=== PATIENT | male | born 1955 | race African-American/Black ===

== ENCOUNTER 2016-07-19 17:41 | Emergency (ER) | payer MEDICARE, MEDICAID ==
[~2016-07-19] VITALS: Ht 177.8 cm; Wt 90.0 kg
[~2016-07-19 17:41] MED LIST: BACL-141 PO; KEPP500 PO; LAM1 PO; LEVE750T4 PO; LISI40TA4 PO; METO50TA5 PO; SIMV20TA6 PO; TERA5CAP4 PO; TOPI25CA2 PO; TRAZ-132 PO; TRIA1CAP PO
[2016-07-19] MEDS ORDERED: SODIUM CHLORIDE 0.9% 1,000 ML IV ONE (18:01)
[2016-07-19] MEDS ORDERED: LEVETIRACETAM 500MG PREMIX 100 ML IV ONE (18:15)
[2016-07-19 18:36] LABS: CHLORIDE 106 mEq/L (98-107)
[2016-07-19 18:38] LABS: BASOPHILS % 1.1 % (0.0-2.0); EOSINOPHILS % 10.8 % (0.0-5.0); HEMATOCRIT. 37.4 % (42.0-52.0); HEMOGLOBIN. 12.5 g/dL (14.0-18.0); LYMPHOCYTES % 34.8 % (20.0-50.0); MEAN CORPUSCULAR HEMOGLOBIN 30.7 pg (28.0-32.0); MEAN CORPUSCULAR VOLUME 91.8 fL (80.0-94.0); MEAN PLATELET VOLUME 9.4 fl (7.4-10.4); MONOCYTES % 6.6 % (2.0-8.0); NEUTROPHILS % 46.7 % (40.0-76.0); PLATELET 163 x1000/uL (130-400); RED BLOOD CELL COUNT 4.07 mill/uL (4.7-6.1); RED CELL DISTRIBUTION WIDTH 14.3 % (11.6-14.6)
[2016-07-19 18:43] LABS: CARBON DIOXIDE 24 mEq/L (21-32)
[2016-07-19 19:23] VITALS: BP 135/91
[2016-07-19 19:49] LABS: CLARITY URINE CLEAR (CLEAR); COLOR URINE YELLOW (YELLOW); GLUCOSE URINE NEGATIVE (NEGATIVE); KETONES URINE NEGATIVE (NEGATIVE); LEUKOCYTE ESTERASE URINE 3+ (NEGATIVE); NITRITE URINE NEGATIVE (NEGATIVE); OCCULT BLOOD URINE TRACE (NEGATIVE); PH URINE 7.5 (4.5-8.0); PROTEIN URINE 1+ (NEGATIVE); SPECIFIC GRAVITY URINE 1.011 (1.005-1.030); UROBILINOGEN URINE 0.2 E.U./dL (0.2-1.0)
[2016-07-19] MEDS ORDERED: CEPHALEXIN 500MG CAPSULE PO ONE (20:00)
[2016-07-19] MEDS ORDERED: POTASSIUM CHLORIDE 20MEQ TABLET SR PO ONE (20:00)
== END 2016-07-19 22:07 | disposition home or self-care (01) ==
LOC: ER 18:15
DX: R56.9 Unspecified convulsions (principal); E87.6 Hypokalemia; N30.00 Acute cystitis without hematuria; I11.9 Hypertensive heart disease without heart failure; I25.10 Atherosclerotic heart disease of native coronary artery without angina pectoris; I48.91 Unspecified atrial fibrillation; Z79.1 Long term (current) use of non-steroidal anti-inflammatories (NSAID); Z79.899 Other long term (current) drug therapy; Z86.73 Personal history of transient ischemic attack (TIA), and cerebral infarction without residual deficits; Z95.0 Presence of cardiac pacemaker
CPT/HCPCS: 36415; 80053; 81001; 85025; 96365; 99284; J1953; J7030

== ENCOUNTER → 2016-09-09 | Day surgery (SDC) | payer MEDICARE, MEDICAID | END | disposition home or self-care (01) | LOC: RAD 12:20 | PROVIDERS: ATTEND Ophthalmology | DX: Z45.2 Encounter for adjustment and management of vascular access device (principal); N39.0 Urinary tract infection, site not specified | CPT/HCPCS: 36569; 76937; 77001; C1725 ==

== ENCOUNTER 2017-02-23 10:16 | Emergency (ER) | payer MEDICARE, MEDICAID ==
[~2017-02-23] VITALS: Ht 177.8 cm; Wt 85.0 kg
[~2017-02-23 10:16] MED LIST changes: -KEPP500 PO; +METO-539 PO; -METO50TA5 PO; +RIVA20TA PO
[2017-02-23 12:16] LABS: BASOPHILS % 0.9 % (0.0-2.0); HEMATOCRIT. 37.1 % (42.0-52.0); HEMOGLOBIN. 12.3 g/dL (14.0-18.0); LYMPHOCYTES % 14.8 % (20.0-50.0); MEAN CORPUSCULAR HEMOGLOBIN 31.3 pg (28.0-32.0); MEAN CORPUSCULAR VOLUME 94.4 fL (80.0-94.0); MEAN PLATELET VOLUME 9.8 fl (7.4-10.4); MONOCYTES % 5.7 % (2.0-8.0); NEUTROPHILS % 74.6 % (40.0-76.0); PLATELET 151 x1000/uL (130-400); RED BLOOD CELL COUNT 3.93 mill/uL (4.7-6.1); RED CELL DISTRIBUTION WIDTH 13.3 % (11.6-14.6)
[2017-02-23 12:39] LABS: CARBON DIOXIDE 27 mEq/L (21-32); CHLORIDE 104 mEq/L (98-107); ETHANOL BLOOD < 10 mg/dL
[2017-02-23 12:40] LABS: CARBAMAZEPINE < 0.5 ug/mL (4-12); PHENOBARBITAL < 2.1 ug/mL (15.0-40.0); VALPROIC ACID < 3.0 ug/mL (50-100)
[2017-02-23 12:45] LABS: CLARITY URINE CLEAR (CLEAR); COLOR URINE YELLOW (YELLOW); KETONES URINE NEGATIVE (NEGATIVE); LEUKOCYTE ESTERASE URINE 2+ (NEGATIVE); NITRITE URINE NEGATIVE (NEGATIVE); OCCULT BLOOD URINE 1+ (NEGATIVE); PH URINE 6.5 (4.5-8.0); PROTEIN URINE 1+ (NEGATIVE); SPECIFIC GRAVITY URINE 1.014 (1.005-1.030); UROBILINOGEN URINE 0.2 E.U./dL (0.2-1.0)
[2017-02-23 13:09] LABS: *AMPHETAMINES SCREEN URINE NEGATIVE (NEGATIVE); *BARBITURATES SCREEN URINE NEGATIVE (NEGATIVE); *BENZODIAZEPINES SCREEN URINE NEGATIVE (NEGATIVE); *COCAINE SCREEN URINE NEGATIVE (NEGATIVE); CANNABINOID URINE SCREEN NEGATIVE (NEGATIVE); METHADONE URINE SCREEN NEGATIVE (NEGATIVE); OPIATES URINE SCREEN NEGATIVE (NEGATIVE); PHENCYCLIDINE URINE SCREEN NEGATIVE (NEGATIVE)
[2017-02-23] MEDS ORDERED: CEFTRIAXONE 1 G PREMIX 50 ML IV NR (14:45)
[2017-02-23 17:47] VITALS: BP 141/100
== END 2017-02-23 18:14 | disposition home or self-care (01) ==
LOC: ER 10:33
DX: G40.909 Epilepsy, unspecified, not intractable, without status epilepticus (principal); G93.49 Other encephalopathy; G93.89 Other specified disorders of brain; I48.91 Unspecified atrial fibrillation; I11.9 Hypertensive heart disease without heart failure; I25.10 Atherosclerotic heart disease of native coronary artery without angina pectoris; D64.9 Anemia, unspecified; I69.198 Other sequelae of nontraumatic intracerebral hemorrhage; M62.421 Contracture of muscle, right upper arm; Z95.0 Presence of cardiac pacemaker
CPT/HCPCS: 36415; 70450; 71045; 80053; 80156; 80165; 80184; 80185; 80305; 81001; 85025; 87077; 87086; 87186; 96365; 96366; 99285; G0482; J0696

== ENCOUNTER 2017-07-14 23:25 | Emergency (ER) | payer MEDICARE, MEDICAID ==
[~2017-07-14] VITALS: Ht 177.8 cm; Wt 84.0 kg
[2017-07-14] MEDS ORDERED: SODIUM CHLORIDE 0.9% 1,000 ML IV ONE (23:51)
[2017-07-15] MEDS ORDERED: LORAZEPAM 2MG/ML CPJ IV PRN
[2017-07-15 00:33] LABS: BASOPHILS % 1.2 % (0.0-2.0); EOSINOPHILS % 9.2 % (0.0-5.0); HEMATOCRIT. 34.2 % (42.0-52.0); HEMOGLOBIN. 11.6 g/dL (14.0-18.0); MEAN CORPUSCULAR HEMOGLOBIN 31.5 pg (28.0-32.0); MEAN CORPUSCULAR VOLUME 92.7 fL (80.0-94.0); MEAN PLATELET VOLUME 9.4 fl (7.4-10.4); MONOCYTES % 6.4 % (2.0-8.0); NEUTROPHILS % 51.2 % (40.0-76.0); PLATELET 147 x1000/uL (130-400); RED BLOOD CELL COUNT 3.68 mill/uL (4.7-6.1)
[2017-07-15 00:38] LABS: CHLORIDE 104 mEq/L (98-107)
[2017-07-15 00:39] LABS: INR 1.2; PROTHROMBIN TIME 12.8 sec (9.4-11.6)
[2017-07-15 00:46] LABS: ETHANOL BLOOD < 10 mg/dL
[2017-07-15] MEDS ORDERED: SODIUM CHLORIDE 0.9% 1,000 ML IV ONE (01:15)
[2017-07-15] MEDS ORDERED: POTASSIUM CHLORIDE 20MEQ TABLET SR PO SCH (02:07)
[2017-07-15 02:47] LABS: CLARITY URINE CLEAR (CLEAR); COLOR URINE YELLOW (YELLOW); KETONES URINE NEGATIVE (NEGATIVE); LEUKOCYTE ESTERASE URINE 2+ (NEGATIVE); NITRITE URINE NEGATIVE (NEGATIVE); OCCULT BLOOD URINE TRACE (NEGATIVE); PH URINE 6.5 (4.5-8.0); PROTEIN URINE TRACE (NEGATIVE); SPECIFIC GRAVITY URINE 1.012 (1.005-1.030); UROBILINOGEN URINE 0.2 E.U./dL (0.2-1.0)
[2017-07-15 02:56] LABS: *AMPHETAMINES SCREEN URINE NEGATIVE (NEGATIVE); *BARBITURATES SCREEN URINE NEGATIVE (NEGATIVE); *BENZODIAZEPINES SCREEN URINE NEGATIVE (NEGATIVE); *COCAINE SCREEN URINE NEGATIVE (NEGATIVE)
[2017-07-15 02:57] LABS: CANNABINOID URINE SCREEN NEGATIVE (NEGATIVE); METHADONE URINE SCREEN NEGATIVE (NEGATIVE); OPIATES URINE SCREEN NEGATIVE (NEGATIVE); PHENCYCLIDINE URINE SCREEN NEGATIVE (NEGATIVE)
[2017-07-15 07:41] VITALS: BP 134/87
== END 2017-07-15 07:43 | disposition home or self-care (01) ==
LOC: ER 23:25
DX: R56.9 Unspecified convulsions (principal); I10 Essential (primary) hypertension; N39.0 Urinary tract infection, site not specified; I25.10 Atherosclerotic heart disease of native coronary artery without angina pectoris; I48.91 Unspecified atrial fibrillation
CPT/HCPCS: 36415; 70450; 71045; 80053; 80305; 81003; 83690; 84443; 84484; 85025; 85610; 86850; 86900; 86901; 87077; 87086; 87186; 93005; 96374; 99285; G0482; J2060; J7030

== ENCOUNTER → 2018-03-24 | Outpatient (CLI) | payer MEDICARE, MEDICAID ==
[~2018-03-24] MED LIST changes: +CALC-1042 PO; +MULT-1146 MT; +TOPI50TA24 MT; -TRAZ-132 PO; +TRAZ-213 MT; +TRIA1TAB92 MT
== END | disposition home or self-care (01) ==
LOC: US 10:24
PROVIDERS: ATTEND Ophthalmology
DX: N26.1 Atrophy of kidney (terminal) (principal); R31.9 Hematuria, unspecified; N28.1 Cyst of kidney, acquired; N28.89 Other specified disorders of kidney and ureter
CPT/HCPCS: 76770

== ENCOUNTER 2018-05-10 08:56 | Inpatient (IN) | payer MEDICARE, MEDICAID ==
[~2018-05-10] VITALS: Ht 177.8 cm; Wt 79.4 kg
[~2018-05-10 08:56] MED LIST changes: -CALC-1042 PO; -MULT-1146 MT; -TOPI50TA24 MT; -TRAZ-213 MT; -TRIA1TAB92 MT
[2018-05-10] MEDS ORDERED: LEVETIRACETAM 1000MG/100ML 100 ML IV ONE (09:45)
[2018-05-10 10:50] LABS: CLARITY URINE CLEAR (CLEAR); COLOR URINE YELLOW (YELLOW); KETONES URINE NEGATIVE (NEGATIVE); LEUKOCYTE ESTERASE URINE 3+ (NEGATIVE); NITRITE URINE NEGATIVE (NEGATIVE); OCCULT BLOOD URINE 2+ (NEGATIVE); PROTEIN URINE NEGATIVE (NEGATIVE); SPECIFIC GRAVITY URINE 1.009 (1.005-1.030); UROBILINOGEN URINE 0.2 E.U./dL (0.2-1.0)
[2018-05-10 10:51] LABS: BASOPHILS % 0.6 % (0.0-2.0); EOSINOPHILS % 3.6 % (0.0-5.0); HEMATOCRIT. 33.5 % (42.0-52.0); HEMOGLOBIN. 10.9 g/dL (14.0-18.0); LYMPHOCYTES % 15.7 % (20.0-50.0); MEAN CORPUSCULAR HEMOGLOBIN 29.3 pg (28.0-32.0); MEAN PLATELET VOLUME 9.2 fl (7.4-10.4); MONOCYTES % 6.2 % (2.0-8.0); NEUTROPHILS % 73.9 % (40.0-76.0); PLATELET 123 x1000/uL (130-400); RED BLOOD CELL COUNT 3.72 mill/uL (4.7-6.1); RED CELL DISTRIBUTION WIDTH 15.5 % (11.6-14.6)
[2018-05-10 10:55] LABS: CHLORIDE 107 mEq/L (98-107)
[2018-05-10 10:59] LABS: ETHANOL BLOOD < 10 mg/dL
[2018-05-10 11:28] LABS: *AMPHETAMINES SCREEN URINE NEGATIVE (NEGATIVE); *BARBITURATES SCREEN URINE NEGATIVE (NEGATIVE); METHADONE URINE SCREEN NEGATIVE (NEGATIVE); OPIATES URINE SCREEN NEGATIVE (NEGATIVE)
[2018-05-10 11:29] LABS: CANNABINOID URINE SCREEN NEGATIVE (NEGATIVE); PHENCYCLIDINE URINE SCREEN NEGATIVE (NEGATIVE)
[2018-05-10 11:30] LABS: *COCAINE SCREEN URINE NEGATIVE (NEGATIVE)
[2018-05-10 11:33] LABS: *BENZODIAZEPINES SCREEN URINE NEGATIVE (NEGATIVE)
[2018-05-10] MEDS ORDERED: POTASSIUM CHLORIDE 20MEQ TABLET SR PO ONE (12:15)
[2018-05-10] MEDS ORDERED: LORAZEPAM 2MG/ML CPJ IV PRN (15:15)
[2018-05-10] MEDS ORDERED: ONDANSETRON HCL 4MG/2ML INJ IV PRN (15:15)
[2018-05-10] MEDS ORDERED: ACETAMINOPHEN 325MG TABLET PO PRN (15:15)
[2018-05-10 22:30] VITALS: BP 142/90
[2018-05-10] MEDS ORDERED: POTASSIUM CHLORIDE 20MEQ TABLET SR PO NR (22:35)
[2018-05-10] MEDS ORDERED: CEFTRIAXONE 1 G PREMIX 50 ML IV SCH (23:30)
[2018-05-10] MEDS: ATORVASTATIN CALCIUM 20MG TABLET PO SCH (23:37)
[2018-05-11] VITALS: BP 121/81
[2018-05-11 04:00] VITALS: BP 124/74
[2018-05-11 06:51] LABS: BASOPHILS % 1.4 % (0.0-2.0); HEMATOCRIT. 33.9 % (42.0-52.0); LYMPHOCYTES % 28.9 % (20.0-50.0); MEAN CORPUSCULAR HEMOGLOBIN 29.2 pg (28.0-32.0); MEAN CORPUSCULAR VOLUME 89.8 fL (80.0-94.0); MEAN PLATELET VOLUME 9.1 fl (7.4-10.4); MONOCYTES % 8.2 % (2.0-8.0); NEUTROPHILS % 57.5 % (40.0-76.0); PLATELET 131 x1000/uL (130-400); RED BLOOD CELL COUNT 3.77 mill/uL (4.7-6.1); RED CELL DISTRIBUTION WIDTH 15.8 % (11.6-14.6)
[2018-05-11 08:00] VITALS: BP 130/79
[2018-05-11] MEDS ORDERED: POTASSIUM CHLORIDE 20MEQ/PACKET PO NR (09:00)
[2018-05-11 09:07] LABS: CREATINE KINASE 186 IU/L (39-308)
[2018-05-11] MEDS: LEVETIRACETAM 500MG TABLET PO SCH ×2 (09:52→21:24)
[2018-05-11] MEDS: LAMOTRIGINE 100MG TABLET PO SCH ×2 (09:52→17:47)
[2018-05-11] MEDS: LISINOPRIL 40MG TABLET PO SCH (09:52)
[2018-05-11] MEDS: METOPROLOL TARTRATE 50MG TABLET PO SCH ×2 (09:53→21:23)
[2018-05-11 12:00] VITALS: BP 127/83
[2018-05-11] MEDS: BACLOFEN 10MG TABLET PO SCH ×2 (14:17→17:48)
[2018-05-11 16:00] VITALS: BP 147/86
[2018-05-11] MEDS: RIVAROXABAN 20 MG TABLET PO SCH (17:48)
[2018-05-11 20:00] VITALS: BP 141/84
[2018-05-11] MEDS: ATORVASTATIN CALCIUM 20MG TABLET PO SCH (21:23)
[2018-05-11] MEDS: TOPIRAMATE 25MG TABLET PO SCH (21:23)
[2018-05-11] MEDS: CEFTRIAXONE 1 G PREMIX 50 ML IV SCH (21:27)
[2018-05-12] VITALS (7 sets, daily range): BP systolic 103–146; BP diastolic 55–90
[2018-05-12 07:00] LABS: CHLORIDE 111 mEq/L (98-107)
[2018-05-12 07:16] LABS: BASOPHILS % 0.7 % (0.0-2.0); EOSINOPHILS % 6.2 % (0.0-5.0); HEMATOCRIT. 32.2 % (42.0-52.0); HEMOGLOBIN. 10.6 g/dL (14.0-18.0); LYMPHOCYTES % 34.9 % (20.0-50.0); MEAN CORPUSCULAR HEMOGLOBIN 29.6 pg (28.0-32.0); MEAN CORPUSCULAR VOLUME 89.7 fL (80.0-94.0); MEAN PLATELET VOLUME 9.6 fl (7.4-10.4); MONOCYTES % 7.7 % (2.0-8.0); NEUTROPHILS % 50.5 % (40.0-76.0); PLATELET 141 x1000/uL (130-400); RED BLOOD CELL COUNT 3.59 mill/uL (4.7-6.1); RED CELL DISTRIBUTION WIDTH 15.5 % (11.6-14.6)
[2018-05-12] MEDS ORDERED: POTASSIUM CHLORIDE 20MEQ/PACKET PO NR (08:30)
[2018-05-12] MEDS: LEVETIRACETAM 500MG TABLET PO SCH ×2 (09:49→21:02)
[2018-05-12] MEDS: LAMOTRIGINE 100MG TABLET PO SCH ×2 (09:49→18:22)
[2018-05-12] MEDS: BACLOFEN 10MG TABLET PO SCH ×2 (09:49→18:21)
[2018-05-12] MEDS: TOPIRAMATE 25MG TABLET PO SCH ×2 (09:49→21:01)
[2018-05-12] MEDS: METOPROLOL TARTRATE 50MG TABLET PO SCH ×2 (09:50→21:06)
[2018-05-12] MEDS: LISINOPRIL 40MG TABLET PO SCH (09:51)
[2018-05-12] MEDS: RIVAROXABAN 20 MG TABLET PO SCH (18:21)
[2018-05-12] MEDS ORDERED: TRAZ-213 MT (20:35)
[2018-05-12] MEDS ORDERED: TOPI50TA24 MT (20:35)
[2018-05-12] MEDS ORDERED: TRIA1TAB92 MT (20:35)
[2018-05-12] MEDS: ATORVASTATIN CALCIUM 20MG TABLET PO SCH (21:01)
[2018-05-12] MEDS: CEFTRIAXONE 1 G PREMIX 50 ML IV SCH (21:06)
[2018-05-13] VITALS: BP 152/91
[2018-05-13 04:00] VITALS: BP 152/93
[2018-05-13 06:49] LABS: BASOPHILS % 0.6 % (0.0-2.0); EOSINOPHILS % 7.5 % (0.0-5.0); HEMATOCRIT. 33.1 % (42.0-52.0); LYMPHOCYTES % 37.4 % (20.0-50.0); MEAN CORPUSCULAR HEMOGLOBIN 29.8 pg (28.0-32.0); MEAN CORPUSCULAR VOLUME 89.5 fL (80.0-94.0); MEAN PLATELET VOLUME 9.4 fl (7.4-10.4); NEUTROPHILS % 47.5 % (40.0-76.0); PLATELET 132 x1000/uL (130-400); RED CELL DISTRIBUTION WIDTH 15.7 % (11.6-14.6)
[2018-05-13 07:25] LABS: PHOSPHORUS 2.8 mg/dL (2.5-4.9)
[2018-05-13 08:00] VITALS: BP 144/72
[2018-05-13] MEDS ORDERED: POTASSIUM CHLORIDE 20MEQ/PACKET PO SCH (08:30)
[2018-05-13] MEDS: BACLOFEN 10MG TABLET PO SCH ×2 (08:37→17:57)
[2018-05-13] MEDS: LAMOTRIGINE 100MG TABLET PO SCH ×2 (08:37→17:58)
[2018-05-13] MEDS: LEVETIRACETAM 500MG TABLET PO SCH ×2 (08:37→22:04)
[2018-05-13] MEDS: TOPIRAMATE 25MG TABLET PO SCH ×2 (08:39→22:04)
[2018-05-13] MEDS: LISINOPRIL 40MG TABLET PO SCH (08:39)
[2018-05-13] MEDS: METOPROLOL TARTRATE 50MG TABLET PO SCH ×2 (08:39→22:05)
[2018-05-13 12:00] VITALS: BP 143/83
[2018-05-13 16:00] VITALS: BP 147/89
[2018-05-13] MEDS ORDERED: CALC-1042 PO (16:17)
[2018-05-13] MEDS ORDERED: MULT-1146 MT (16:18)
[2018-05-13] MEDS ORDERED: NITROFURANTOIN 100MG M/M CAPSULE PO SCH (17:00)
[2018-05-13] MEDS: RIVAROXABAN 20 MG TABLET PO SCH (17:58)
[2018-05-13] MEDS: ATORVASTATIN CALCIUM 20MG TABLET PO SCH (22:04)
[2018-05-13] MEDS: CEFTRIAXONE 1 G PREMIX 50 ML IV SCH (22:06)
[2018-05-14] VITALS: BP 130/52
[2018-05-14 04:00] VITALS: BP 152/95
[2018-05-14 06:49] LABS: BASOPHILS % 0.9 % (0.0-2.0); EOSINOPHILS % 7.9 % (0.0-5.0); HEMATOCRIT. 35.4 % (42.0-52.0); HEMOGLOBIN. 11.7 g/dL (14.0-18.0); LYMPHOCYTES % 32.5 % (20.0-50.0); MEAN CORPUSCULAR VOLUME 91.1 fL (80.0-94.0); MEAN PLATELET VOLUME 10.2 fl (7.4-10.4); MONOCYTES % 6.5 % (2.0-8.0); NEUTROPHILS % 52.2 % (40.0-76.0); PLATELET 122 x1000/uL (130-400); RED BLOOD CELL COUNT 3.89 mill/uL (4.7-6.1)
[2018-05-14 07:04] LABS: PHOSPHORUS 3.2 mg/dL (2.5-4.9)
[2018-05-14 08:00] VITALS: BP 140/90
[2018-05-14] MEDS ORDERED: POTASSIUM CHLORIDE 20MEQ TABLET SR PO NR (09:00)
[2018-05-14] MEDS: BACLOFEN 10MG TABLET PO SCH (09:05)
[2018-05-14] MEDS: METOPROLOL TARTRATE 50MG TABLET PO SCH (09:05)
[2018-05-14] MEDS: LISINOPRIL 40MG TABLET PO SCH (09:06)
[2018-05-14] MEDS: TOPIRAMATE 25MG TABLET PO SCH (09:06)
[2018-05-14] MEDS: LAMOTRIGINE 100MG TABLET PO SCH (09:06)
[2018-05-14] MEDS: LEVETIRACETAM 500MG TABLET PO SCH (09:10)
[2018-05-14 09:15] VITALS: BP 140/90
== END 2018-05-14 11:45 | disposition home health service (06) | DRG 100 ==
LOC: ER 08:56 → EDBEDREQ 12:12 → 5WST 12:38 → EDBEDREQ 12:42 → ENRESERV 20:38
PROVIDERS: ADMIT Ophthalmology; ATTEND Ophthalmology
DX: G40.409 Other generalized epilepsy and epileptic syndromes, not intractable, without status epilepticus (principal); N17.0 Acute kidney failure with tubular necrosis; E44.0 Moderate protein-calorie malnutrition; N17.9 Acute kidney failure, unspecified; N39.0 Urinary tract infection, site not specified; I82.503 Chronic embolism and thrombosis of unspecified deep veins of lower extremity, bilateral; D64.9 Anemia, unspecified; E11.22 Type 2 diabetes mellitus with diabetic chronic kidney disease; B96.5 Pseudomonas (aeruginosa) (mallei) (pseudomallei) as the cause of diseases classified elsewhere; E87.6 Hypokalemia; E78.5 Hyperlipidemia, unspecified; R25.2 Cramp and spasm; I12.9 Hypertensive chronic kidney disease with stage 1 through stage 4 chronic kidney disease, or unspecified chronic kidney disease; N40.0 Benign prostatic hyperplasia without lower urinary tract symptoms; I25.10 Atherosclerotic heart disease of native coronary artery without angina pectoris; N18.9 Chronic kidney disease, unspecified; Z95.0 Presence of cardiac pacemaker; Z82.49 Family history of ischemic heart disease and other diseases of the circulatory system; Z83.3 Family history of diabetes mellitus; Z99.3 Dependence on wheelchair; Z95.828 Presence of other vascular implants and grafts; Z87.440 Personal history of urinary (tract) infections; Z79.01 Long term (current) use of anticoagulants; Z79.899 Other long term (current) drug therapy; I69.398 Other sequelae of cerebral infarction; Z68.25 Body mass index [BMI] 25.0-25.9, adult
CPT/HCPCS: 36415; 76770; 80048; 80305; 80320; 82550; 82962; 83735; 84100; 87077; 87186; 93306; 93970; 96374; 99285; J0696; J1953; J7040; G0480

== ENCOUNTER → 2018-11-12 | Outpatient (CLI) | payer MEDICARE, MEDICAID ==
[~2018-11-12] MED LIST changes: -LAM1 PO; -LEVE750T4 PO; -TOPI25CA2 PO; +TOPI50TA24 MT; +TRAZ-213 MT; -TRIA1CAP PO; +TRIA1TAB92 MT
== END | disposition home or self-care (01) ==
LOC: CT 10:08
PROVIDERS: ATTEND Ophthalmology
DX: N28.1 Cyst of kidney, acquired (principal); R63.4 Abnormal weight loss; R91.8 Other nonspecific abnormal finding of lung field; I11.9 Hypertensive heart disease without heart failure; I31.3 Pericardial effusion (noninflammatory); J90 Pleural effusion, not elsewhere classified
CPT/HCPCS: 71250

== ENCOUNTER → 2019-07-20 | Outpatient (CLI) | payer MEDICARE, MEDICAID ==
[~2019-07-20] MED LIST changes: +ATOR10TA MT; +BACL-141 MT; +FINA1TAB18 PO; +FINA5TAB3 MT; +HYDR-4135 MT; +IOHEXOL-300 100 ML BOTTLE ONE; +LEVE1000 MT; +LEVE1000 PO; +LIP40 MT; +LISI40TA4 MT; +METO-539 MT; +RIVA20TA MT; +SIMV-43 PO; -SIMV20TA6 PO; +TERA5CAP4 MT; +TOPI25TA48 PO; -TRAZ-213 MT; +TRAZ-251 MT; +TRAZ-252 MT; +TRIA1TAB92 PO
== END | disposition home or self-care (01) ==
LOC: CT 09:49
PROVIDERS: ATTEND Ophthalmology
DX: I67.82 Cerebral ischemia (principal); G31.9 Degenerative disease of nervous system, unspecified; I63.9 Cerebral infarction, unspecified; I63.81 Other cerebral infarction due to occlusion or stenosis of small artery; G93.89 Other specified disorders of brain; R27.0 Ataxia, unspecified; Z98.890 Other specified postprocedural states
CPT/HCPCS: 70460; Q9967

== ENCOUNTER 2019-08-14 18:57 | Inpatient (IN) | payer MEDICARE, MEDICAID ==
[~2019-08-14] VITALS: Ht 180.3 cm; Wt 69.9 kg
[~2019-08-14 18:57] MED LIST changes: -ATOR10TA MT; -BACL-141 MT; -FINA1TAB18 PO; -FINA5TAB3 MT; -HYDR-4135 MT; -IOHEXOL-300 100 ML BOTTLE ONE; -LEVE1000 MT; -LEVE1000 PO; -LIP40 MT; -LISI40TA4 MT; -METO-539 MT; -RIVA20TA MT; -TERA5CAP4 MT; -TOPI25TA48 PO; -TRAZ-251 MT; -TRIA1TAB92 PO
[2019-08-14 21:04] LABS: BASOPHILS % 0.7 % (0.0-2.0); EOSINOPHILS % 4.4 % (0.0-5.0); HEMATOCRIT. 34.1 % (42.0-52.0); HEMOGLOBIN. 11.4 g/dL (14.0-18.0); MEAN CORPUSCULAR HEMOGLOBIN 26.8 pg (28.0-32.0); MEAN CORPUSCULAR VOLUME 80.3 fL (80.0-94.0); MEAN PLATELET VOLUME 8.2 fl (7.4-10.4); MONOCYTES % 5.6 % (2.0-8.0); NEUTROPHILS % 59.3 % (40.0-76.0); PLATELET 172 x1000/uL (130-400); RED BLOOD CELL COUNT 4.25 mill/uL (4.7-6.1); RED CELL DISTRIBUTION WIDTH 18.4 % (11.6-14.6)
[2019-08-14 21:09] LABS: CLARITY URINE CLEAR (CLEAR); COLOR URINE YELLOW (YELLOW); KETONES URINE NEGATIVE (NEGATIVE); LEUKOCYTE ESTERASE URINE 1+ (NEGATIVE); NITRITE URINE NEGATIVE (NEGATIVE); OCCULT BLOOD URINE NEGATIVE (NEGATIVE); PH URINE 7.5 (4.5-8.0); PROTEIN URINE NEGATIVE (NEGATIVE); SPECIFIC GRAVITY URINE 1.012 (1.005-1.030); UROBILINOGEN URINE 0.2 E.U./dL (0.2-1.0)
[2019-08-14 21:09] LABS: CHLORIDE 103 mEq/L (98-107)
[2019-08-14 21:10] LABS: INR 1.5; PROTHROMBIN TIME 15.3 sec (9.6-11.0)
[2019-08-14 21:13] LABS: ETHANOL BLOOD < 10 mg/dL
[2019-08-14] MEDS ORDERED: KCL 20MEQ/100ML PREMIX 100 ML IV ONE (21:15)
[2019-08-14 21:16] LABS: LDL CHOLESTEROL 68 mg/dL (5-100)
[2019-08-14 21:19] LABS: *BARBITURATES SCREEN URINE NEGATIVE (NEGATIVE)
[2019-08-14 21:20] LABS: *BENZODIAZEPINES SCREEN URINE NEGATIVE (NEGATIVE); *COCAINE SCREEN URINE NEGATIVE (NEGATIVE); CANNABINOID URINE SCREEN NEGATIVE (NEGATIVE); METHADONE URINE SCREEN NEGATIVE (NEGATIVE); OPIATES URINE SCREEN NEGATIVE (NEGATIVE); PHENCYCLIDINE URINE SCREEN NEGATIVE (NEGATIVE)
[2019-08-14 21:21] LABS: *AMPHETAMINES SCREEN URINE NEGATIVE (NEGATIVE)
[2019-08-15] VITALS: BP 175/93
[2019-08-15] MEDS ORDERED: ACETAMINOPHEN 325MG TABLET PO PRN (00:30)
[2019-08-15] MEDS ORDERED: HYDRALAZINE 20MG/ML VIAL IV PRN (00:30)
[2019-08-15] MEDS ORDERED: POTASSIUM CHLORIDE INJ 30 MEQ in DEXT 5% WATER 250 ML IV NR (02:00)
[2019-08-15] MEDS ORDERED: KCL 20MEQ/100ML PREMIX 100 ML IV NR (02:00)
[2019-08-15 04:00] VITALS: BP_SYST 164; BP_SYST 167; BP_DIAS 96; BP_DIAS 98
[2019-08-15] MEDS ORDERED: LEVE1000 PO (06:58)
[2019-08-15] MEDS ORDERED: FINA1TAB18 PO (06:59)
[2019-08-15 08:26] VITALS: BP 163/97
[2019-08-15] MEDS ORDERED: DIATR MEGLU/DIATRIZOATE SOLN 30ML PO SCH (10:15)
[2019-08-15] MEDS: LISINOPRIL 40MG TABLET PO SCH (10:45)
[2019-08-15] MEDS: LEVETIRACETAM 500MG TABLET PO SCH ×2 (10:46→20:10)
[2019-08-15] MEDS: TOPIRAMATE 25MG TABLET PO SCH ×2 (10:46→20:12)
[2019-08-15] MEDS: METOPROLOL TARTRATE 50MG TABLET PO SCH ×2 (10:46→20:12)
[2019-08-15] MEDS: BACLOFEN 10MG TABLET PO SCH ×3 (10:46→17:23)
[2019-08-15] MEDS: FINASTERIDE 5MG TABLET PO SCH (10:47)
[2019-08-15] MEDS: RIVAROXABAN 20 MG TABLET PO SCH (17:23)
[2019-08-15] MEDS ORDERED: IOHEXOL-350 100 ML BOTTLE ONE (18:09)
[2019-08-15 20:00] VITALS: BP 136/88
[2019-08-15] MEDS: TERAZOSIN HCL 1MG CAPSULE PO SCH (20:11)
[2019-08-15] MEDS: ATORVASTATIN CALCIUM 10MG TABLET PO SCH (20:12)
[2019-08-15] MEDS: TRAZODONE HCL 50MG TABLET PO SCH (20:12)
[2019-08-16] VITALS: BP 119/80
[2019-08-16 04:00] VITALS: BP 112/80
[2019-08-16] MEDS: FINASTERIDE 5MG TABLET PO SCH (09:41)
[2019-08-16] MEDS: METOPROLOL TARTRATE 50MG TABLET PO SCH ×2 (09:43→21:00)
[2019-08-16] MEDS: LEVETIRACETAM 500MG TABLET PO SCH ×2 (09:43→21:29)
[2019-08-16] MEDS: LISINOPRIL 40MG TABLET PO SCH (09:43)
[2019-08-16] MEDS: TOPIRAMATE 25MG TABLET PO SCH ×2 (09:50→21:29)
[2019-08-16] MEDS: BACLOFEN 10MG TABLET PO SCH ×3 (09:50→17:50)
[2019-08-16 11:34] LABS: BASOPHILS % 0.1 % (0.0-2.0); EOSINOPHILS % 4.2 % (0.0-5.0); LYMPHOCYTES % 20.9 % (20.0-50.0); MEAN CORPUSCULAR HEMOGLOBIN 26.9 pg (28.0-32.0); MEAN CORPUSCULAR VOLUME 80.2 fL (80.0-94.0); MEAN PLATELET VOLUME 8.4 fl (7.4-10.4); MONOCYTES % 6.1 % (2.0-8.0); NEUTROPHILS % 68.7 % (40.0-76.0); PLATELET 146 x1000/uL (130-400); RED BLOOD CELL COUNT 3.73 mill/uL (4.7-6.1); RED CELL DISTRIBUTION WIDTH 18.4 % (11.6-14.6)
[2019-08-16 11:41] LABS: CHLORIDE 103 mEq/L (98-107)
[2019-08-16 12:00] VITALS: BP 109/72
[2019-08-16 16:00] VITALS: BP 115/75
[2019-08-16] MEDS ORDERED: POTASSIUM CHLORIDE 20MEQ TABLET SR PO NR ×2 (17:15→22:00)
[2019-08-16] MEDS: RIVAROXABAN 20 MG TABLET PO SCH (17:50)
[2019-08-16 20:51] VITALS: BP 103/72
[2019-08-16] MEDS: TERAZOSIN HCL 1MG CAPSULE PO SCH (21:00)
[2019-08-16] MEDS: ATORVASTATIN CALCIUM 10MG TABLET PO SCH (21:29)
[2019-08-16] MEDS: TRAZODONE HCL 50MG TABLET PO SCH (21:29)
[2019-08-17 00:10] VITALS: BP 109/73
[2019-08-17 04:00] VITALS: BP 110/75
[2019-08-17 06:24] LABS: BASOPHILS % 0.8 % (0.0-2.0); EOSINOPHILS % 7.8 % (0.0-5.0); HEMATOCRIT. 29.2 % (42.0-52.0); HEMOGLOBIN. 9.7 g/dL (14.0-18.0); LYMPHOCYTES % 38.3 % (20.0-50.0); MEAN CORPUSCULAR HEMOGLOBIN 26.6 pg (28.0-32.0); MEAN CORPUSCULAR VOLUME 80.1 fL (80.0-94.0); MEAN PLATELET VOLUME 8.7 fl (7.4-10.4); MONOCYTES % 7.4 % (2.0-8.0); NEUTROPHILS % 45.7 % (40.0-76.0); PLATELET 136 x1000/uL (130-400); RED BLOOD CELL COUNT 3.65 mill/uL (4.7-6.1); RED CELL DISTRIBUTION WIDTH 18.8 % (11.6-14.6)
[2019-08-17 06:46] LABS: CHLORIDE 106 mEq/L (98-107)
[2019-08-17 08:00] VITALS: BP 108/68
[2019-08-17] MEDS: METOPROLOL TARTRATE 50MG TABLET PO SCH ×2 (08:36→20:11)
[2019-08-17] MEDS: LISINOPRIL 40MG TABLET PO SCH (08:37)
[2019-08-17] MEDS: BACLOFEN 10MG TABLET PO SCH ×4 (08:51→17:00)
[2019-08-17] MEDS: FINASTERIDE 5MG TABLET PO SCH (08:51)
[2019-08-17] MEDS: LEVETIRACETAM 500MG TABLET PO SCH ×2 (08:51→20:11)
[2019-08-17] MEDS: TOPIRAMATE 25MG TABLET PO SCH ×2 (08:51→20:11)
[2019-08-17 12:00] VITALS: BP 110/77
[2019-08-17 16:00] VITALS: BP 118/76
[2019-08-17] MEDS: RIVAROXABAN 20 MG TABLET PO SCH (18:07)
[2019-08-17 20:00] VITALS: BP 136/78
[2019-08-17] MEDS: TERAZOSIN HCL 1MG CAPSULE PO SCH (20:10)
[2019-08-17] MEDS: TRAZODONE HCL 50MG TABLET PO SCH (20:10)
[2019-08-17] MEDS: ATORVASTATIN CALCIUM 10MG TABLET PO SCH (20:11)
[2019-08-18] VITALS: BP 125/76
[2019-08-18 04:00] VITALS: BP 111/73
[2019-08-18 08:00] VITALS: BP 145/82
[2019-08-18] MEDS: TOPIRAMATE 25MG TABLET PO SCH (08:49)
[2019-08-18] MEDS: LEVETIRACETAM 500MG TABLET PO SCH (08:49)
[2019-08-18] MEDS: FINASTERIDE 5MG TABLET PO SCH (08:49)
[2019-08-18] MEDS: LISINOPRIL 40MG TABLET PO SCH (08:50)
[2019-08-18] MEDS: BACLOFEN 10MG TABLET PO SCH ×2 (08:53→12:12)
[2019-08-18] MEDS: METOPROLOL TARTRATE 50MG TABLET PO SCH (08:53)
[2019-08-18 11:18] VITALS: BP 145/82
== END 2019-08-18 13:45 | DRG 65 ==
LOC: ER 18:57 → 5WST 20:15 → EDBEDREQ 20:19 → EDBEDREQTM 20:19 → EDBEDREQSVC 20:19 → ENRESERV 22:44
PROVIDERS: ADMIT Ophthalmology; ATTEND Ophthalmology
DX: I63.9 Cerebral infarction, unspecified (principal); I69.351 Hemiplegia and hemiparesis following cerebral infarction affecting right dominant side; G40.919 Epilepsy, unspecified, intractable, without status epilepticus; N39.0 Urinary tract infection, site not specified; C79.9 Secondary malignant neoplasm of unspecified site; E46 Unspecified protein-calorie malnutrition; C79.51 Secondary malignant neoplasm of bone; G93.40 Encephalopathy, unspecified; I25.10 Atherosclerotic heart disease of native coronary artery without angina pectoris; I10 Essential (primary) hypertension; C61 Malignant neoplasm of prostate; N40.0 Benign prostatic hyperplasia without lower urinary tract symptoms; R63.4 Abnormal weight loss; Z87.440 Personal history of urinary (tract) infections; Z95.0 Presence of cardiac pacemaker; Z87.442 Personal history of urinary calculi; Z86.718 Personal history of other venous thrombosis and embolism; Z83.3 Family history of diabetes mellitus; Z82.49 Family history of ischemic heart disease and other diseases of the circulatory system; Z79.01 Long term (current) use of anticoagulants; I69.322 Dysarthria following cerebral infarction; Z95.828 Presence of other vascular implants and grafts; Z79.899 Other long term (current) drug therapy; E87.6 Hypokalemia
CPT/HCPCS: 36415; 70496; 71045; 71250; 74176; 80048; 80053; 80305; 80320; 81003; 83721; 84153; 84484; 85025; 93005; 97162; 99285; J0360; J3480; J7060; Q9963; Q9967; G0103; G0480

== ENCOUNTER 2019-08-18 13:35 | Inpatient (IN) | payer MEDICARE, MEDICAID ==
[~2019-08-18] VITALS: Ht 177.8 cm; Wt 85.7 kg
[2019-08-18 13:35] VITALS: BP 149/63
[~2019-08-18 13:35] MED LIST changes: +FINA1TAB18 PO; +LEVE1000 PO
[2019-08-18] MEDS ORDERED: BISACODYL 5MG TABLET PO PRN (15:00)
[2019-08-18] MEDS ORDERED: ACETAMINOPHEN 325MG TABLET PO PRN (15:15)
[2019-08-18] MEDS ORDERED: HYDRALAZINE 20MG/ML VIAL IV PRN (15:15)
[2019-08-18] MEDS ORDERED: HYDRALAZINE 10 MG in SODIUM CHLORIDE 0.9% 49.5 ML IV PRN (15:30)
[2019-08-18] MEDS: DOCUSATE SODIUM 100MG CAPSULE PO SCH (16:30)
[2019-08-18] MEDS: RIVAROXABAN 20 MG TABLET PO SCH (16:30)
[2019-08-18] MEDS ORDERED: CLONIDINE 0.1MG TABLET PO PRN (17:00)
[2019-08-18 19:49] VITALS: BP 169/90
[2019-08-18] MEDS: TRAZODONE HCL 50MG TABLET PO SCH (21:53)
[2019-08-18] MEDS: LEVETIRACETAM 500MG TABLET PO SCH (21:53)
[2019-08-18] MEDS: TOPIRAMATE 25MG TABLET PO SCH (21:54)
[2019-08-18] MEDS: BACLOFEN 10MG TABLET PO SCH (21:54)
[2019-08-18] MEDS: METOPROLOL TARTRATE 50MG TABLET PO SCH (21:54)
[2019-08-18] MEDS: ATORVASTATIN CALCIUM 10MG TABLET PO SCH (21:54)
[2019-08-18] MEDS: TERAZOSIN HCL 1MG CAPSULE PO SCH (21:59)
[2019-08-19] MEDS: BACLOFEN 10MG TABLET PO SCH ×3 (05:55→21:37)
[2019-08-19] MEDS: LEVETIRACETAM 500MG TABLET PO SCH ×2 (08:04→21:36)
[2019-08-19] MEDS: FINASTERIDE 5MG TABLET PO SCH (08:05)
[2019-08-19] MEDS: DOCUSATE SODIUM 100MG CAPSULE PO SCH ×2 (08:05→16:12)
[2019-08-19] MEDS: LISINOPRIL 40MG TABLET PO SCH (08:05)
[2019-08-19] MEDS: TOPIRAMATE 25MG TABLET PO SCH ×2 (08:05→21:37)
[2019-08-19 08:06] VITALS: BP 137/86
[2019-08-19] MEDS: METOPROLOL TARTRATE 50MG TABLET PO SCH ×2 (08:06→21:36)
[2019-08-19 08:07] LABS: BASOPHILS % 1.1 % (0.0-2.0); EOSINOPHILS % 7.6 % (0.0-5.0); HEMATOCRIT. 30.8 % (42.0-52.0); HEMOGLOBIN. 10.2 g/dL (14.0-18.0); LYMPHOCYTES % 31.7 % (20.0-50.0); MEAN CORPUSCULAR HEMOGLOBIN 26.4 pg (28.0-32.0); MEAN PLATELET VOLUME 9.2 fl (7.4-10.4); MONOCYTES % 6.8 % (2.0-8.0); NEUTROPHILS % 52.8 % (40.0-76.0); PLATELET 140 x1000/uL (130-400); RED BLOOD CELL COUNT 3.85 mill/uL (4.7-6.1); RED CELL DISTRIBUTION WIDTH 19.1 % (11.6-14.6)
[2019-08-19 08:31] LABS: CHLORIDE 108 mEq/L (98-107)
[2019-08-19] MEDS ORDERED: POTASSIUM CHLORIDE 20MEQ TABLET SR PO NR (12:00)
[2019-08-19] MEDS ORDERED: HYDROCODONE/ACETAMINOPHEN 5/325MG TABLET PO PRN (15:00)
[2019-08-19] MEDS: RIVAROXABAN 20 MG TABLET PO SCH (16:13)
[2019-08-19 20:00] VITALS: BP 152/90
[2019-08-19] MEDS: TERAZOSIN HCL 1MG CAPSULE PO SCH (21:35)
[2019-08-19] MEDS: TRAZODONE HCL 50MG TABLET PO SCH (21:35)
[2019-08-19] MEDS: ATORVASTATIN CALCIUM 10MG TABLET PO SCH (21:36)
[2019-08-20] MEDS: BACLOFEN 10MG TABLET PO SCH ×3 (05:25→21:01)
[2019-08-20 07:08] LABS: HEMATOCRIT 29.7 % (42.0-52.0); HEMOGLOBIN 9.8 g/dL (14.0-18.0); MEAN CORPUSCULAR HEMOGLOBIN 26.9 pg (28.0-32.0); MEAN CORPUSCULAR VOLUME 81.5 fL (80.0-94.0); PLATELET 139 x1000/uL (130-400); RED BLOOD CELL COUNT 3.64 mill/uL (4.7-6.1); RED CELL DISTRIBUTION WIDTH 18.8 % (11.6-14.6)
[2019-08-20 07:33] LABS: CHLORIDE 107 mEq/L (98-107)
[2019-08-20 08:00] VITALS: BP 132/86
[2019-08-20] MEDS: LEVETIRACETAM 500MG TABLET PO SCH ×2 (08:21→20:58)
[2019-08-20] MEDS: FINASTERIDE 5MG TABLET PO SCH (08:21)
[2019-08-20] MEDS: TOPIRAMATE 25MG TABLET PO SCH ×2 (08:21→21:00)
[2019-08-20] MEDS: LISINOPRIL 40MG TABLET PO SCH (08:22)
[2019-08-20] MEDS: DOCUSATE SODIUM 100MG CAPSULE PO SCH ×2 (08:22→16:09)
[2019-08-20] MEDS: METOPROLOL TARTRATE 50MG TABLET PO SCH ×2 (08:22→20:59)
[2019-08-20] MEDS: RIVAROXABAN 20 MG TABLET PO SCH (16:09)
[2019-08-20] MEDS: TRAZODONE HCL 50MG TABLET PO SCH (20:53)
[2019-08-20] MEDS: TERAZOSIN HCL 1MG CAPSULE PO SCH (20:54)
[2019-08-20] MEDS: ATORVASTATIN CALCIUM 10MG TABLET PO SCH (20:58)
[2019-08-20 21:49] VITALS: BP 137/89
[2019-08-21] MEDS: BACLOFEN 10MG TABLET PO SCH ×3 (05:32→21:49)
[2019-08-21 08:12] VITALS: BP 139/91
[2019-08-21] MEDS: LEVETIRACETAM 500MG TABLET PO SCH ×2 (09:17→21:48)
[2019-08-21] MEDS: TOPIRAMATE 25MG TABLET PO SCH ×2 (09:17→21:48)
[2019-08-21] MEDS: METOPROLOL TARTRATE 50MG TABLET PO SCH ×2 (09:17→22:37)
[2019-08-21] MEDS: DOCUSATE SODIUM 100MG CAPSULE PO SCH ×2 (09:17→16:04)
[2019-08-21] MEDS: FINASTERIDE 5MG TABLET PO SCH (09:18)
[2019-08-21] MEDS: LISINOPRIL 40MG TABLET PO SCH (09:18)
[2019-08-21] MEDS ORDERED: POTASSIUM CHLORIDE 20MEQ TABLET SR PO NR (15:30)
[2019-08-21] MEDS: RIVAROXABAN 20 MG TABLET PO SCH (16:04)
[2019-08-21 20:00] VITALS: BP 160/88
[2019-08-21] MEDS: TRAZODONE HCL 50MG TABLET PO SCH (21:49)
[2019-08-21] MEDS: TERAZOSIN HCL 1MG CAPSULE PO SCH (21:49)
[2019-08-21] MEDS: ATORVASTATIN CALCIUM 10MG TABLET PO SCH (21:49)
[2019-08-21 23:00] VITALS: BP 130/68
[2019-08-22] MEDS: BACLOFEN 10MG TABLET PO SCH ×4 (06:14→21:49)
[2019-08-22 07:00] VITALS: BP 121/74
[2019-08-22] MEDS: DOCUSATE SODIUM 100MG CAPSULE PO SCH ×2 (09:00→16:24)
[2019-08-22] MEDS: METOPROLOL TARTRATE 50MG TABLET PO SCH ×2 (09:01→21:00)
[2019-08-22] MEDS: FINASTERIDE 5MG TABLET PO SCH (09:01)
[2019-08-22] MEDS: LISINOPRIL 40MG TABLET PO SCH (09:01)
[2019-08-22] MEDS: LEVETIRACETAM 500MG TABLET PO SCH ×2 (09:01→21:48)
[2019-08-22] MEDS: TOPIRAMATE 25MG TABLET PO SCH ×2 (09:01→21:48)
[2019-08-22] MEDS: RIVAROXABAN 20 MG TABLET PO SCH (16:24)
[2019-08-22 20:00] VITALS: BP_SYST 142; BP_SYST 168; BP_DIAS 78; BP_DIAS 95
[2019-08-22] MEDS: TRAZODONE HCL 50MG TABLET PO SCH (21:47)
[2019-08-22] MEDS: ATORVASTATIN CALCIUM 10MG TABLET PO SCH (21:48)
[2019-08-22] MEDS: TERAZOSIN HCL 1MG CAPSULE PO SCH (21:49)
[2019-08-23] VITALS: BP 133/70
[2019-08-23] MEDS: BACLOFEN 10MG TABLET PO SCH ×3 (06:00→22:07)
[2019-08-23 07:12] LABS: CHLORIDE 109 mEq/L (98-107)
[2019-08-23 08:04] VITALS: BP 133/55
[2019-08-23] MEDS: LEVETIRACETAM 500MG TABLET PO SCH ×2 (08:25→22:07)
[2019-08-23] MEDS: LISINOPRIL 40MG TABLET PO SCH (08:25)
[2019-08-23] MEDS: FINASTERIDE 5MG TABLET PO SCH (08:25)
[2019-08-23] MEDS: METOPROLOL TARTRATE 50MG TABLET PO SCH (08:26)
[2019-08-23] MEDS: TOPIRAMATE 25MG TABLET PO SCH ×2 (08:26→22:07)
[2019-08-23] MEDS: DOCUSATE SODIUM 100MG CAPSULE PO SCH ×2 (08:26→17:02)
[2019-08-23] MEDS ORDERED: POTASSIUM CHLORIDE 20MEQ TABLET SR PO NR (11:30)
[2019-08-23] MEDS: RIVAROXABAN 20 MG TABLET PO SCH (17:02)
[2019-08-23 20:00] VITALS: BP 138/81
[2019-08-23] MEDS: TRAZODONE HCL 50MG TABLET PO SCH (22:08)
[2019-08-23] MEDS: ATORVASTATIN CALCIUM 10MG TABLET PO SCH (22:08)
[2019-08-23] MEDS: TERAZOSIN HCL 1MG CAPSULE PO SCH (22:09)
[2019-08-23 23:50] LABS: CLARITY URINE CLEAR (CLEAR); COLOR URINE YELLOW (YELLOW); KETONES URINE NEGATIVE (NEGATIVE); LEUKOCYTE ESTERASE URINE 2+ (NEGATIVE); NITRITE URINE NEGATIVE (NEGATIVE); OCCULT BLOOD URINE NEGATIVE (NEGATIVE); PH URINE 6.5 (4.5-8.0); PROTEIN URINE TRACE (NEGATIVE); SPECIFIC GRAVITY URINE 1.017 (1.005-1.030); UROBILINOGEN URINE 0.2 E.U./dL (0.2-1.0)
[2019-08-24] MEDS: METOPROLOL TARTRATE 50MG TABLET PO SCH ×3 (01:01→21:22)
[2019-08-24] MEDS: BACLOFEN 10MG TABLET PO SCH ×4 (06:00→21:22)
[2019-08-24 06:24] LABS: CHLORIDE 112 mEq/L (98-107)
[2019-08-24 08:00] VITALS: BP 145/85
[2019-08-24] MEDS: POTASSIUM CHLORIDE 20MEQ TABLET SR PO SCH (08:38)
[2019-08-24] MEDS: TOPIRAMATE 25MG TABLET PO SCH ×2 (08:39→21:23)
[2019-08-24] MEDS: FINASTERIDE 5MG TABLET PO SCH (08:39)
[2019-08-24] MEDS: LISINOPRIL 40MG TABLET PO SCH (08:39)
[2019-08-24] MEDS: DOCUSATE SODIUM 100MG CAPSULE PO SCH ×2 (08:40→17:04)
[2019-08-24] MEDS: LEVETIRACETAM 500MG TABLET PO SCH ×2 (08:40→21:23)
[2019-08-24] MEDS ORDERED: LEVOFLOXACIN 500MG TABLET PO NR (11:00)
[2019-08-24] MEDS ORDERED: POTASSIUM CHLORIDE 20MEQ TABLET SR PO NR (17:00)
[2019-08-24] MEDS: RIVAROXABAN 20 MG TABLET PO SCH (17:04)
[2019-08-24 20:00] VITALS: BP 166/94
[2019-08-24] MEDS: ATORVASTATIN CALCIUM 10MG TABLET PO SCH (21:23)
[2019-08-24] MEDS: TERAZOSIN HCL 1MG CAPSULE PO SCH (21:23)
[2019-08-24] MEDS: TRAZODONE HCL 50MG TABLET PO SCH (21:23)
[2019-08-25] MEDS: BACLOFEN 10MG TABLET PO SCH ×4 (05:40→21:09)
[2019-08-25 06:32] LABS: CHLORIDE 115 mEq/L (98-107)
[2019-08-25 08:06] VITALS: BP 162/98
[2019-08-25 08:09] VITALS: BP 162/98
[2019-08-25] MEDS: METOPROLOL TARTRATE 50MG TABLET PO SCH ×2 (09:55→20:45)
[2019-08-25] MEDS: LEVETIRACETAM 500MG TABLET PO SCH ×2 (09:55→20:44)
[2019-08-25] MEDS: LISINOPRIL 40MG TABLET PO SCH (09:55)
[2019-08-25] MEDS: LEVOFLOXACIN 250MG TABLET PO SCH (09:56)
[2019-08-25] MEDS: FINASTERIDE 5MG TABLET PO SCH (09:56)
[2019-08-25] MEDS: TOPIRAMATE 25MG TABLET PO SCH ×2 (09:58→20:45)
[2019-08-25] MEDS: DOCUSATE SODIUM 100MG CAPSULE PO SCH ×3 (09:58→16:17)
[2019-08-25] MEDS: POTASSIUM CHLORIDE 20MEQ TABLET SR PO SCH (09:58)
[2019-08-25] MEDS ORDERED: HYDRALAZINE HCL 50MG TABLET PO NR (11:15)
[2019-08-25] MEDS: HYDRALAZINE HCL 50MG TABLET PO SCH ×2 (15:07→22:15)
[2019-08-25] MEDS: RIVAROXABAN 20 MG TABLET PO SCH (16:12)
[2019-08-25 20:00] VITALS: BP 156/83
[2019-08-25] MEDS: TERAZOSIN HCL 1MG CAPSULE PO SCH (20:43)
[2019-08-25] MEDS: ATORVASTATIN CALCIUM 10MG TABLET PO SCH (20:44)
[2019-08-25] MEDS: TRAZODONE HCL 50MG TABLET PO SCH (20:44)
[2019-08-26] MEDS: HYDRALAZINE HCL 50MG TABLET PO SCH ×3 (05:26→21:16)
[2019-08-26] MEDS: BACLOFEN 10MG TABLET PO SCH ×3 (05:26→21:15)
[2019-08-26 07:28] LABS: CHLORIDE 114 mEq/L (98-107)
[2019-08-26 07:59] VITALS: BP 155/94
[2019-08-26] MEDS: LEVETIRACETAM 500MG TABLET PO SCH ×2 (08:34→21:16)
[2019-08-26] MEDS: FINASTERIDE 5MG TABLET PO SCH (08:35)
[2019-08-26] MEDS: METOPROLOL TARTRATE 50MG TABLET PO SCH ×2 (08:35→21:15)
[2019-08-26] MEDS: TOPIRAMATE 25MG TABLET PO SCH ×2 (08:35→21:16)
[2019-08-26] MEDS: DOCUSATE SODIUM 100MG CAPSULE PO SCH ×2 (08:35→17:42)
[2019-08-26] MEDS: POTASSIUM CHLORIDE 20MEQ TABLET SR PO SCH (08:35)
[2019-08-26] MEDS: LISINOPRIL 40MG TABLET PO SCH (08:35)
[2019-08-26] MEDS: LEVOFLOXACIN 250MG TABLET PO SCH (10:09)
[2019-08-26] MEDS ORDERED: POTASSIUM CHLORIDE 20MEQ TABLET SR PO NR (10:30)
[2019-08-26] MEDS: RIVAROXABAN 20 MG TABLET PO SCH (17:42)
[2019-08-26 20:00] VITALS: BP 165/94
[2019-08-26] MEDS: TRAZODONE HCL 50MG TABLET PO SCH (21:14)
[2019-08-26] MEDS: TERAZOSIN HCL 1MG CAPSULE PO SCH (21:15)
[2019-08-26] MEDS: ATORVASTATIN CALCIUM 10MG TABLET PO SCH (21:16)
[2019-08-27] MEDS: HYDRALAZINE HCL 50MG TABLET PO SCH ×3 (06:09→22:44)
[2019-08-27] MEDS: BACLOFEN 10MG TABLET PO SCH ×3 (06:10→22:44)
[2019-08-27 06:31] LABS: BASOPHILS % 1.1 % (0.0-2.0); EOSINOPHILS % 7.1 % (0.0-5.0); HEMOGLOBIN. 9.1 g/dL (14.0-18.0); LYMPHOCYTES % 38.4 % (20.0-50.0); MEAN CORPUSCULAR HEMOGLOBIN 26.6 pg (28.0-32.0); MEAN CORPUSCULAR VOLUME 81.9 fL (80.0-94.0); MEAN PLATELET VOLUME 8.7 fl (7.4-10.4); MONOCYTES % 9.1 % (2.0-8.0); NEUTROPHILS % 44.3 % (40.0-76.0); PLATELET 142 x1000/uL (130-400); RED BLOOD CELL COUNT 3.42 mill/uL (4.7-6.1); RED CELL DISTRIBUTION WIDTH 18.7 % (11.6-14.6)
[2019-08-27 06:38] LABS: CHLORIDE 115 mEq/L (98-107)
[2019-08-27 08:21] VITALS: BP 143/79
[2019-08-27] MEDS: TOPIRAMATE 25MG TABLET PO SCH ×2 (08:22→22:43)
[2019-08-27] MEDS: METOPROLOL TARTRATE 50MG TABLET PO SCH ×2 (08:23→21:35)
[2019-08-27] MEDS: LISINOPRIL 40MG TABLET PO SCH (08:23)
[2019-08-27] MEDS: FINASTERIDE 5MG TABLET PO SCH (08:23)
[2019-08-27] MEDS: DOCUSATE SODIUM 100MG CAPSULE PO SCH ×2 (08:23→16:10)
[2019-08-27] MEDS: LEVETIRACETAM 500MG TABLET PO SCH ×2 (08:23→21:34)
[2019-08-27] MEDS: POTASSIUM CHLORIDE 20MEQ TABLET SR PO SCH (08:23)
[2019-08-27] MEDS: LEVOFLOXACIN 250MG TABLET PO SCH (10:45)
[2019-08-27] MEDS: RIVAROXABAN 20 MG TABLET PO SCH (16:10)
[2019-08-27 20:00] VITALS: BP 143/92
[2019-08-27] MEDS: TERAZOSIN HCL 1MG CAPSULE PO SCH (21:35)
[2019-08-27] MEDS: TRAZODONE HCL 50MG TABLET PO SCH (21:35)
[2019-08-27] MEDS: ATORVASTATIN CALCIUM 10MG TABLET PO SCH (21:39)
[2019-08-28] MEDS: BACLOFEN 10MG TABLET PO SCH ×3 (06:30→22:11)
[2019-08-28] MEDS: HYDRALAZINE HCL 50MG TABLET PO SCH ×3 (06:30→22:11)
[2019-08-28 07:41] VITALS: BP 135/85
[2019-08-28] MEDS: DOCUSATE SODIUM 100MG CAPSULE PO SCH ×2 (08:04→16:17)
[2019-08-28] MEDS: LEVETIRACETAM 500MG TABLET PO SCH ×2 (08:04→22:11)
[2019-08-28] MEDS: POTASSIUM CHLORIDE 20MEQ TABLET SR PO SCH (08:04)
[2019-08-28] MEDS: FINASTERIDE 5MG TABLET PO SCH (08:04)
[2019-08-28] MEDS: TOPIRAMATE 25MG TABLET PO SCH ×2 (08:04→22:12)
[2019-08-28] MEDS: LISINOPRIL 40MG TABLET PO SCH (08:04)
[2019-08-28] MEDS: METOPROLOL TARTRATE 50MG TABLET PO SCH (08:04)
[2019-08-28] MEDS: LEVOFLOXACIN 250MG TABLET PO SCH (10:26)
[2019-08-28] MEDS: RIVAROXABAN 20 MG TABLET PO SCH (16:24)
[2019-08-28 20:00] VITALS: BP 150/80
[2019-08-28] MEDS: TRAZODONE HCL 50MG TABLET PO SCH (22:11)
[2019-08-28] MEDS: ATORVASTATIN CALCIUM 10MG TABLET PO SCH (22:12)
[2019-08-28] MEDS: TERAZOSIN HCL 1MG CAPSULE PO SCH (22:12)
[2019-08-29] MEDS: METOPROLOL TARTRATE 50MG TABLET PO SCH ×2 (00:02→08:45)
[2019-08-29] MEDS: HYDRALAZINE HCL 50MG TABLET PO SCH ×3 (05:02→21:10)
[2019-08-29] MEDS: BACLOFEN 10MG TABLET PO SCH ×3 (05:04→21:09)
[2019-08-29 07:32] LABS: HEMATOCRIT 27.2 % (42.0-52.0); HEMOGLOBIN 8.9 g/dL (14.0-18.0); MEAN CORPUSCULAR HEMOGLOBIN 26.6 pg (28.0-32.0); MEAN CORPUSCULAR VOLUME 81.4 fL (80.0-94.0); PLATELET 141 x1000/uL (130-400); RED BLOOD CELL COUNT 3.34 mill/uL (4.7-6.1); RED CELL DISTRIBUTION WIDTH 18.7 % (11.6-14.6)
[2019-08-29 08:05] LABS: CHLORIDE 114 mEq/L (98-107)
[2019-08-29 08:09] VITALS: BP 136/85
[2019-08-29] MEDS: DOCUSATE SODIUM 100MG CAPSULE PO SCH ×2 (08:44→16:14)
[2019-08-29] MEDS: LISINOPRIL 40MG TABLET PO SCH (08:44)
[2019-08-29] MEDS: LEVETIRACETAM 500MG TABLET PO SCH ×2 (08:44→21:09)
[2019-08-29] MEDS: FINASTERIDE 5MG TABLET PO SCH (08:45)
[2019-08-29] MEDS: TOPIRAMATE 25MG TABLET PO SCH ×2 (08:45→21:09)
[2019-08-29] MEDS: POTASSIUM CHLORIDE 20MEQ TABLET SR PO SCH (08:45)
[2019-08-29] MEDS: RIVAROXABAN 20 MG TABLET PO SCH (16:25)
[2019-08-29 20:00] VITALS: BP 146/69
[2019-08-29] MEDS: TRAZODONE HCL 50MG TABLET PO SCH (21:09)
[2019-08-29] MEDS: TERAZOSIN HCL 1MG CAPSULE PO SCH (21:10)
[2019-08-29] MEDS: ATORVASTATIN CALCIUM 10MG TABLET PO SCH (21:10)
[2019-08-30] MEDS: BACLOFEN 10MG TABLET PO SCH ×2 (06:00→13:53)
[2019-08-30] MEDS: METOPROLOL TARTRATE 50MG TABLET PO SCH ×3 (06:12→22:10)
[2019-08-30] MEDS: HYDRALAZINE HCL 50MG TABLET PO SCH ×2 (06:13→13:53)
[2019-08-30 08:00] VITALS: BP 142/87
[2019-08-30] MEDS: DOCUSATE SODIUM 100MG CAPSULE PO SCH ×2 (09:59→17:56)
[2019-08-30] MEDS: LISINOPRIL 40MG TABLET PO SCH (09:59)
[2019-08-30] MEDS: FINASTERIDE 5MG TABLET PO SCH (09:59)
[2019-08-30] MEDS: LEVETIRACETAM 500MG TABLET PO SCH ×2 (09:59→22:09)
[2019-08-30] MEDS: TOPIRAMATE 25MG TABLET PO SCH ×2 (09:59→22:13)
[2019-08-30] MEDS: POTASSIUM CHLORIDE 20MEQ TABLET SR PO SCH (10:00)
[2019-08-30 12:48] LABS: CHLORIDE 113 mEq/L (98-107)
[2019-08-30] MEDS: RIVAROXABAN 20 MG TABLET PO SCH (17:56)
[2019-08-30 20:00] VITALS: BP 148/82
[2019-08-30] MEDS: TRAZODONE HCL 50MG TABLET PO SCH (22:12)
[2019-08-30] MEDS: TERAZOSIN HCL 1MG CAPSULE PO SCH (22:13)
[2019-08-30] MEDS: ATORVASTATIN CALCIUM 10MG TABLET PO SCH (22:13)
[2019-08-31] MEDS: HYDRALAZINE HCL 50MG TABLET PO SCH ×4 (01:12→23:31)
[2019-08-31] MEDS: BACLOFEN 10MG TABLET PO SCH ×4 (01:12→23:31)
[2019-08-31 07:45] VITALS: BP 147/89
[2019-08-31] MEDS: DOCUSATE SODIUM 100MG CAPSULE PO SCH ×2 (08:50→17:24)
[2019-08-31] MEDS: FINASTERIDE 5MG TABLET PO SCH (08:50)
[2019-08-31] MEDS: TOPIRAMATE 25MG TABLET PO SCH ×2 (08:50→21:33)
[2019-08-31] MEDS: POTASSIUM CHLORIDE 20MEQ TABLET SR PO SCH (08:51)
[2019-08-31] MEDS: LEVETIRACETAM 500MG TABLET PO SCH ×2 (08:51→21:33)
[2019-08-31] MEDS: METOPROLOL TARTRATE 50MG TABLET PO SCH ×2 (08:51→21:34)
[2019-08-31] MEDS: LISINOPRIL 40MG TABLET PO SCH (08:51)
[2019-08-31] MEDS: RIVAROXABAN 20 MG TABLET PO SCH (17:23)
[2019-08-31 20:00] VITALS: BP 151/88
[2019-08-31] MEDS: ATORVASTATIN CALCIUM 10MG TABLET PO SCH (21:31)
[2019-08-31] MEDS: TERAZOSIN HCL 1MG CAPSULE PO SCH (21:32)
[2019-08-31] MEDS: TRAZODONE HCL 50MG TABLET PO SCH (21:33)
[2019-09-01] MEDS: BACLOFEN 10MG TABLET PO SCH ×3 (06:16→23:08)
[2019-09-01] MEDS: HYDRALAZINE HCL 50MG TABLET PO SCH ×3 (06:18→23:09)
[2019-09-01 07:46] VITALS: BP 142/86
[2019-09-01 07:54] LABS: HEMATOCRIT 27.7 % (42.0-52.0); HEMOGLOBIN 8.9 g/dL (14.0-18.0); MEAN CORPUSCULAR HEMOGLOBIN 26.4 pg (28.0-32.0); MEAN CORPUSCULAR VOLUME 81.6 fL (80.0-94.0); PLATELET 137 x1000/uL (130-400); RED BLOOD CELL COUNT 3.39 mill/uL (4.7-6.1); RED CELL DISTRIBUTION WIDTH 19.4 % (11.6-14.6)
[2019-09-01 08:05] LABS: CHLORIDE 114 mEq/L (98-107)
[2019-09-01] MEDS: LEVETIRACETAM 500MG TABLET PO SCH ×2 (09:16→21:33)
[2019-09-01] MEDS: POTASSIUM CHLORIDE 20MEQ TABLET SR PO SCH (09:16)
[2019-09-01] MEDS: TOPIRAMATE 25MG TABLET PO SCH ×2 (09:16→21:34)
[2019-09-01] MEDS: DOCUSATE SODIUM 100MG CAPSULE PO SCH ×2 (09:16→17:22)
[2019-09-01] MEDS: FINASTERIDE 5MG TABLET PO SCH (09:17)
[2019-09-01] MEDS: METOPROLOL TARTRATE 50MG TABLET PO SCH ×2 (09:17→21:34)
[2019-09-01] MEDS: LISINOPRIL 40MG TABLET PO SCH (09:20)
[2019-09-01] MEDS ORDERED: POTASSIUM CHLORIDE 20MEQ TABLET SR PO SCH (10:45)
[2019-09-01] MEDS ORDERED: LEVE1000 MT (13:09)
[2019-09-01] MEDS ORDERED: TOPI50TA24 MT (13:09)
[2019-09-01] MEDS ORDERED: BACL-141 MT (13:09)
[2019-09-01] MEDS ORDERED: HYDR-4135 MT (13:09)
[2019-09-01] MEDS ORDERED: METO-539 MT (13:09)
[2019-09-01] MEDS ORDERED: TERA5CAP4 MT (13:09)
[2019-09-01] MEDS ORDERED: FINA5TAB3 MT (13:09)
[2019-09-01] MEDS ORDERED: LISI40TA4 MT (13:09)
[2019-09-01] MEDS ORDERED: ATOR10TA MT (13:09)
[2019-09-01] MEDS ORDERED: RIVA20TA MT (13:09)
[2019-09-01] MEDS ORDERED: TRAZ-252 MT (13:09)
[2019-09-01] MEDS: RIVAROXABAN 20 MG TABLET PO SCH (17:22)
[2019-09-01 20:00] VITALS: BP 148/80
[2019-09-01] MEDS: TERAZOSIN HCL 1MG CAPSULE PO SCH (21:33)
[2019-09-01] MEDS: ATORVASTATIN CALCIUM 10MG TABLET PO SCH (21:34)
[2019-09-01] MEDS: TRAZODONE HCL 50MG TABLET PO SCH (21:34)
[2019-09-02] MEDS: BACLOFEN 10MG TABLET PO SCH ×2 (06:23→14:17)
[2019-09-02] MEDS: HYDRALAZINE HCL 50MG TABLET PO SCH ×2 (06:24→14:17)
[2019-09-02 07:25] LABS: HEMATOCRIT 27.9 % (42.0-52.0); MEAN CORPUSCULAR HEMOGLOBIN 26.2 pg (28.0-32.0); MEAN CORPUSCULAR VOLUME 81.6 fL (80.0-94.0); PLATELET 135 x1000/uL (130-400); RED BLOOD CELL COUNT 3.42 mill/uL (4.7-6.1); RED CELL DISTRIBUTION WIDTH 19.1 % (11.6-14.6)
[2019-09-02 07:34] LABS: CHLORIDE 115 mEq/L (98-107)
[2019-09-02 08:00] VITALS: BP 137/79
[2019-09-02] MEDS: DOCUSATE SODIUM 100MG CAPSULE PO SCH ×2 (09:17→16:21)
[2019-09-02] MEDS: LISINOPRIL 40MG TABLET PO SCH (09:17)
[2019-09-02] MEDS: POTASSIUM CHLORIDE 20MEQ TABLET SR PO SCH (09:18)
[2019-09-02] MEDS: FINASTERIDE 5MG TABLET PO SCH (09:18)
[2019-09-02] MEDS: TOPIRAMATE 25MG TABLET PO SCH (09:18)
[2019-09-02] MEDS: METOPROLOL TARTRATE 50MG TABLET PO SCH (09:19)
[2019-09-02] MEDS: LEVETIRACETAM 500MG TABLET PO SCH (09:49)
[2019-09-02 10:11] VITALS: BP 128/77
[2019-09-02] MEDS: RIVAROXABAN 20 MG TABLET PO SCH (16:18)
[2019-09-25] MEDS ORDERED: TOPI25TA48 PO (00:38)
[2019-09-25] MEDS ORDERED: TRIA1TAB92 PO (00:38)
[2019-09-25] MEDS ORDERED: TRAZ-251 MT (00:54)
[2019-09-25] MEDS ORDERED: LIP40 MT (01:27)
== END 2019-09-02 17:20 | disposition home health service (06) | DRG 948 ==
PROVIDERS: ADMIT Psychiatry & Neurology Neurology; ATTEND Ophthalmology
DX: R53.81 Other malaise (principal); I69.351 Hemiplegia and hemiparesis following cerebral infarction affecting right dominant side; E46 Unspecified protein-calorie malnutrition; G40.89 Other seizures; N39.0 Urinary tract infection, site not specified; D64.9 Anemia, unspecified; E87.6 Hypokalemia; F48.2 Pseudobulbar affect; I10 Essential (primary) hypertension; R29.6 Repeated falls; R97.20 Elevated prostate specific antigen [PSA]; R91.8 Other nonspecific abnormal finding of lung field; Z79.01 Long term (current) use of anticoagulants; Z85.46 Personal history of malignant neoplasm of prostate; Z86.718 Personal history of other venous thrombosis and embolism; Z95.828 Presence of other vascular implants and grafts; Z95.0 Presence of cardiac pacemaker; Z79.899 Other long term (current) drug therapy
CPT/HCPCS: 36415; 80048; 80053; 81003; 83735; 85025; 85027; 92523; 92610; 93970; 97110; 97112; 97116; 97162; 97166; 97530; 97535; A4565